=== PATIENT | female | born 1930 | race Caucasian/White ===

== ENCOUNTER 2019-08-30 16:29 | Inpatient (IN) | payer OTHER ==
[~2019-08-30] VITALS: Ht 144.8 cm; Wt 59.0 kg
[2019-08-30 16:36] VITALS: BP 145/65
--- NOTE | 2019-08-30 17:00 | NUR ---
89/F BIBA WITH SON AT BEDSIDE, C/O INTERMITTENT DIZZINESS WHEN CHANGING POSITIONS, X1 WEEK. PT ALSO REPORTS RECENT COUGH, CONGESTION, EAR PAIN, SORE THROAT, X1 WEEK. PT AWAKE AND ALERT, PERRLA 2MM, SKIN NORMAL COLOR LOOSE WARM AND DRY, RR EVEN AND UNLABORED. LUNG SOUNDS CLEAR BL. BS ACTIVE X4, ABD SOFT FLAT NONTENDER. HX HTN, POLYMYALGIA RHEUMATOID, BACK SURGERY WITH STIMULATOR, CARPAL TUNNEL SURGERIES RX HCTZ, AND OTHER RX MEDS PT IS UNSURE OF
--- NOTE | 2019-08-30 18:00 | NUR ---
pt unable to urinate at this time, pt given water, will attempt again
--- NOTE | 2019-08-30 19:08 | NUR ---
PT LAYING IN BED, SON AT BEDSIDE. RR EVEN AND UNLABORED. ALL NEEDS MET.
[2019-08-30 19:09] LABS: BASOPHILS % (AUTO) 0.5 % (0.0-2.0); EOSINOPHILS # (AUTO) 0.2 K/uL (0-0.4); EOSINOPHILS % (AUTO) 2.4 % (0.0-4.0); HEMATOCRIT 44.8 % (36-48); HEMOGLOBIN 14.8 g/dL (12.0-16.0); LYMPHOCYTES % (AUTO) 44.3 % (20.5-51.1); MEAN CORPUSCULAR HEMOGLOBIN 30 pg (27-31); MEAN CORPUSCULAR HGB CONC 33 g/dL (33-37); MEAN CORPUSCULAR VOLUME 90.6 fL (80-94); MONOCYTES # (AUTO) 0.8 K/uL (0.8-1.0); MONOCYTES % (AUTO) 8.7 % (1.7-9.3); NEUTROPHILS % (AUTO) 44.1 % (42.2-75.2); PLATELET COUNT (AUTO) 454 K/uL (140-450); RED BLOOD CELL COUNT(AUTO) 4.94 MIL/uL (4.20-5.40); RED CELL DISTRIBUTION WIDTH 12.6 % (11.6-13.7); WHITE BLOOD COUNT (AUTO) 9.1 K/uL (4.8-10.8)
--- NOTE | 2019-08-30 19:15 | NUR ---
pt able to urinate, urine sent for ua
--- NOTE | 2019-08-30 19:24 | NUR ---
PATIENT RESTING IN BED, SIDE RAIL X1
[2019-08-30 19:31] LABS: ASPARTATE AMINOTRANSFERASE 29 U/L (15-37); CARBON DIOXIDE 28.7 mmol/L (21-32); GLUCOSE 113 mg/dL (74-106); TOTAL BILIRUBIN 0.5 mg/dL (0.0-1.0); UREA NITROGEN, BLOOD 20 mg/dL (7-18)
[2019-08-30 19:38] LABS: ALBUMIN 3.4 g/dL (3.4-5.0); ANION GAP 12.9 (8-16); CHLORIDE 106 mmol/L (98-107); POTASSIUM 3.6 mmol/L (3.5-5.1); SODIUM SERUM 144 mmol/L (136-145)
--- NOTE | 2019-08-30 19:38 | NUR ---
PATIENT RESTING IN BED, SIDE RAIL X1
[2019-08-30 19:53] LABS: BILIRUBIN,URINE 1+ (NEGATIVE); BLOOD, URINE NEGATIVE (NEGATIVE); COLOR,URINE YELLOW (YELLOW); LEUKOCYTE ESTERASE ,URINE 2+ (NEGATIVE); NITRITE, URINE NEGATIVE (NEGATIVE); PH,URINE 5.5 (5.0-9.0); UGLUCOSE NEGATIVE (NEGATIVE)
[2019-08-30 20:02] LABS: APPEARANCE,URINE HAZY (CLEAR)
[2019-08-30 20:08] LABS: RBC,URINE NONE SEEN /HPF (0-5)
[2019-08-30] MEDS ORDERED: MECLIZINE 25 MG TAB PO ONE (20:20)
[2019-08-30] MEDS ORDERED: NACL 0.9% 1,000 ML IV ONE (20:20)
[2019-08-30] MEDS ORDERED: cefTRIAXone 1,000 MG VIAL ONE (20:47)
[2019-08-30] MEDS ORDERED: ACETAMINOPHEN 325 MG TAB PO PRN (21:05)
[2019-08-30] MEDS ORDERED: HYDROcodone/APAP 7.5/325 MG 1 TAB PO PRN (21:05)
[2019-08-30] MEDS ORDERED: ONDANSETRON 4 MG/2 ML VIAL IVP PRN (21:05)
--- NOTE | 2019-08-30 21:05 | NUR ---
PT LAYING IN BED, RR EVEN AND UNLABORED. VSS. REPORTS DIZZINESS WITH POSITION CHANGE/SITTING UP. DENIES ANY PAIN. ALL NEEDS MET.
[2019-08-30] MEDS ORDERED: ORE25 PO (21:35)
[2019-08-30] MEDS ORDERED: DULO30EC PO (21:35)
[2019-08-30] MEDS ORDERED: PANT40EC PO (21:36)
--- NOTE | 2019-08-30 22:00 | NUR ---
Patient will be admitted to care of DR MUSA. Admited to [facility]. Will go to room 128A. Belongings list completed. Report to TERRY ADLER.
--- NOTE | 2019-08-30 22:05 | NUR ---
ADMITTED THIS 89 YEAR OLD FEMALE FROM ER PER WHEELCHAIR COMPLAINING OF DIZZINESS AND COUGH, ASSISTED TO BED, VITAL SIGNS STABLE, DENIES ANY PAIN, STILL WITH DIZZINESS WITH MOVEMENT, ORIENTED TO ROOM AND CALL LIGHT, HIXTORY OBTAINED FROM PT ANS SON REHANA, SAFETY MEASURES IN PLACE, CALL LIGHT WITHIN REACH.
[2019-08-30 22:20] VITALS: BP 152/55
[2019-08-30] MEDS: NACL 0.9% 1,000 ML IV SCH (22:39)
--- NOTE | 2019-08-30 23:40 | NUR ---
PT VOIDED FREELY PER BEDPAN, VITAL SIGNS STABLE, DENIES ANY PAIN, NO SOB NOTED, OCCASIONAL MOIST COUGH NOTED, IVF INFUSING WELL, CONTINUE TO MONITOR CLOSELY.
[2019-08-31] VITALS: BP 151/50
[2019-08-31 00:33] LABS: MAGNESIUM 1.6 mg/dL (1.8-2.4); PHOSPHORUS 3.3 mg/dL (2.5-4.9); THYROID STIMULATING HORMONE 4.53 uIU/mL (0.34-3.74)
[2019-08-31 01:30] LABS: PROTHROMBIN TIME 9.9 secs (10.8-13.4)
[2019-08-31] MEDS ORDERED: MECLIZINE 25 MG TAB PO PRN (04:50)
[2019-08-31 05:20] VITALS: BP_SYST 133; BP_SYST 147; BP_SYST 152; BP_DIAS 51; BP_DIAS 68; BP_DIAS 81
[2019-08-31] MEDS: metroNIDAZOLE 500 MG/NS PREMIX 100 ML IV SCH ×3 (05:24→21:08)
--- NOTE | 2019-08-31 05:25 | NUR ---
ORTHOSTATIC VITAL SIGNS TAKEN WHILE LYING SUPINE, SITTING AND STANDING, WITH SLIGHT DIZZINESS WHILE STANDING UP BUT TOLERATED WELL, INITIAL DOSE OF FLAGYL IVPB ADMINISTERED, MONITORED CLOSELY.
--- NOTE | 2019-08-31 07:30 | NUR ---
PT AWAKE, NO SIGNS OF DISTRESS, REPORT GIVEN TO VITOR LEE FOR CONTINUITY OF CARE.
--- NOTE | 2019-08-31 07:31 | NUR ---
RECEIVED BEDSIDE REPORT FROM PETROLEUM SAMPLER RN. PT IS RESTING IN BED, AAOX4. SKIN IS DRY AND INTACT, IV SITE IS CLEAN, INTACT, AND INFUSING IVF ORDERED. BREATHING IS EVEN AND UNLABORED, ON RA. NO COMPLAINTS OF PAIN, NO SIGNS OF DISTRESS AT THIS TIME. EDUCATED PT TO USE CALL LIGHT FOR ANY ASSISTANCE, PT VERBALIZED UNDERSTANDING. SAFETY MEASURES ASSESSED. BED IN LOW POSITION, CALL LIGHT WITHIN REACH. WILL CONTINUE TO MONITOR.
[2019-08-31 08:00] VITALS: BP 146/63
[2019-08-31] MEDS ORDERED: MAGNESIUM OXIDE 400 MG TAB PO SCH (08:00)
--- NOTE | 2019-08-31 08:36 | NUR ---
PATIENT HAS BEEN SCREENED AND CATEGORIZED MODERATE NUTRITION RISK. PATIENT WILL BE SEEN WITHIN 3-5 DAYS OF ADMISSION. 09/02/19 09/04/[address]
[2019-08-31 09:06] LABS: BASOPHILS # (AUTO) 0.1 K/uL (0.00-0.22); EOSINOPHILS # (AUTO) 0.3 K/uL (0-0.4); EOSINOPHILS % (AUTO) 3.9 % (0.0-4.0); HEMATOCRIT 40.6 % (36-48); HEMOGLOBIN 13.3 g/dL (12.0-16.0); LYMPHOCYTES # (AUTO) 4.6 K/uL (2.5-16.5); LYMPHOCYTES % (AUTO) 51.9 % (20.5-51.1); MEAN CORPUSCULAR HEMOGLOBIN 30 pg (27-31); MEAN CORPUSCULAR HGB CONC 33 g/dL (33-37); MEAN CORPUSCULAR VOLUME 90.2 fL (80-94); MONOCYTES # (AUTO) 0.7 K/uL (0.8-1.0); MONOCYTES % (AUTO) 8.1 % (1.7-9.3); NEUTROPHILS # (AUTO) 3.1 K/uL (1.8-7.7); NEUTROPHILS % (AUTO) 35.1 % (42.2-75.2); PLATELET COUNT (AUTO) 413 K/uL (140-450); RED CELL DISTRIBUTION WIDTH 12.6 % (11.6-13.7); WHITE BLOOD COUNT (AUTO) 8.8 K/uL (4.8-10.8)
[2019-08-31] MEDS: DOCUSATE SODIUM 100 MG GELCAP PO SCH ×2 (09:36→20:11)
--- NOTE | 2019-08-31 09:36 | NUR ---
ADMINISTERED MORNING MEDICATIONS ORDERED. MEDICATION EDUCATION WAS GIVEN. PT VERBALIZED UNDERSTANDING. WILL CONTINUE TO MONITOR.
[2019-08-31] MEDS: PANTOPRAZOLE 40 MG TABEC PO SCH (09:37)
[2019-08-31] MEDS: HYDROCHLOROTHIAZIDE 25 MG TAB PO SCH (09:38)
[2019-08-31] MEDS: DULoxetine 30 MG CAPDR PO SCH (09:39)
[2019-08-31 11:07] LABS: ANION GAP 12.6 (8-16); CARBON DIOXIDE 26.2 mmol/L (21-32); CHLORIDE 110 mmol/L (98-107); GLUCOSE 90 mg/dL (74-106); POTASSIUM 3.8 mmol/L (3.5-5.1); SODIUM SERUM 145 mmol/L (136-145); UREA NITROGEN, BLOOD 14 mg/dL (7-18)
--- NOTE | 2019-08-31 11:10 | NUR ---
PT RESTING IN BED. NO COMPLAINTS OF PAIN. NO SIGNS OF DISTRESS NOTED. SAFETY MEASURES ASSESSED. BED IN LOW POSITION AND CALL LIGHT WITHIN REACH. REMINDED PT TO USE CALL LIGHT FOR ANY ASSISTANCE AND PT VERBALIZED UNDERSTANDING. WILL CONTINUE TO MONITOR.
[2019-08-31 12:06] LABS: CHOL/HDL RATIO 3.8 (1-4.5)
--- NOTE | 2019-08-31 13:46 | NUR ---
ADMINISTERED MEDICATION ORDERED. MEDICATION EDUCATION GIVEN TO PT. PT VERBALIZED UNDERSTANDING. REMINDED PT TO USE CALL LIGHT FOR ASSISTANCE. BED IN LOW POSITION. WILL CONTINUE TO MONITOR.
--- NOTE | 2019-08-31 15:05 | NUR ---
PT RESTING IN BED. NO COMPLAINTS OF PAIN AT THIS TIME. SAFETY MEASURES ASSESSED, CALL LIGHT WITHIN REACH AND BED IN LOW POSITION. WILL CONTINUE TO MONITOR.
[2019-08-31 16:00] VITALS: BP 126/43
[2019-08-31] MEDS ORDERED: ASPIRIN 325 MG TABEC PO SCH (17:02)
--- NOTE | 2019-08-31 17:10 | NUR ---
PT RESTING IN BED. COMPLAINS OF HEADACHE PAIN LEVEL 6/10. MEDICATED WITH ASPIRIN EC. MEDICATION EDUCATION GIVEN TO PT. PT VERBALIZED UNDERSTANDING. REMINDED PT TO USE CALL LIGHT FOR ANY ASSISTANCE. CALL LIGHT IS WITHIN REACH AND BED IN LOW POSITION. WILL CONTINUE TO MONITOR.
[2019-08-31] MEDS: NACL 0.9% 1,000 ML IV SCH (18:01)
--- NOTE | 2019-08-31 19:15 | NUR ---
ENDORSED PT TO CODING TECHNICIAN RN. PT IN STABLE CONDITION.
--- NOTE | 2019-08-31 19:18 | NUR ---
RECEIVED PATIENT IN STABLE CONDITION FROM AM SHIFT NURSE. MEDSUR PATIENT AWAKE WITH NO S/SX ACUTE DISTRESS NOTED. NO C/O PAIN AT THIS TIME. IV SITE 20G PATENT/INTACT, INFUSING IV FLUIDS WELL. SAFETY PRECAUTIONS IN PLACE. BED IN LOWEST POSITION. CALL LIGHT WITHIN REACH. WILL CONTINUE TO MONITOR.
[2019-08-31 21:09] LABS: MAGNESIUM 1.5 mg/dL (1.8-2.4)
--- NOTE | 2019-08-31 21:19 | NUR ---
NO S/SX ACUTE DISTRESS. NO C/O PAIN. IV FLUIDS INFUSING WELL. CALL LIGHT WITHIN REACH. WILL CONTINUE TO MONITOR.
--- NOTE | 2019-08-31 23:57 | NUR ---
PATIENT RESTING IN BED, COMFORTABLY. DUE MEDS GIVEN. NO C/O PAIN. NO S/SX ACUTE DISTRESS. PATIENT CLEAN/DRY. CALL LIGHT WITHIN REACH. WILL CONTINUE TO MONITOR.
[2019-09-01] VITALS: BP 126/48
--- NOTE | 2019-09-01 02:00 | NUR ---
MADE ROUNDS. NO S/SX ACUTE DISTRESS. NO C/O PAIN. PATIENT CONTINUES IN STABLE CONDITION. CALL LIGHT WITHIN REACH. WILL CONTINUE TO MONITOR.
--- NOTE | 2019-09-01 04:08 | NUR ---
MADE ROUNDS. PATIENT CONTINUES IN STABLE CONDITION. NO C/O PAIN. NO S/SX ACUTE DISTRESS. CALL LIGHT WITHIN REACH. WILL CONTINUE TO MONITOR.
[2019-09-01] MEDS: metroNIDAZOLE 500 MG/NS PREMIX 100 ML IV SCH ×3 (04:52→20:20)
--- NOTE | 2019-09-01 06:46 | NUR ---
PATIENT IS IN STABLE CONDITION. DUE MEDS GIVEN ORDERED. NO C/O PAIN. NO S/SX ACUTE DISTRESS. CALL LIGHT WITHIN REACH. WILL CONTINUE TO MONITOR.
--- NOTE | 2019-09-01 07:20 | NUR ---
RECEIVED REPORT FROM NIGHT NURSE, PT IS STABLE LAYING IN BED, AAOX4, INTRODUCE SELF, UPDATE WHITEBOARD, IV SITE IS RIGHT HAND 20 G, RUNNING NS AT 50 ML/H, PT IS STABLE NO SIGNS OF DISTRESS NOTED, CALL LIGHT WITHIN REACH.
--- NOTE | 2019-09-01 07:32 | NUR ---
ENDORSED PATIENT TO AM SHIFT NURSE, NORBERTO, IN STABLE CONDITION.
[2019-09-01 07:33] LABS: BASOPHILS % (AUTO) 0.5 % (0.0-2.0); EOSINOPHILS # (AUTO) 0.4 K/uL (0-0.4); EOSINOPHILS % (AUTO) 5.6 % (0.0-4.0); HEMOGLOBIN 12.4 g/dL (12.0-16.0); LYMPHOCYTES # (AUTO) 3.6 K/uL (2.5-16.5); LYMPHOCYTES % (AUTO) 48.1 % (20.5-51.1); MEAN CORPUSCULAR HEMOGLOBIN 30 pg (27-31); MEAN CORPUSCULAR HGB CONC 33 g/dL (33-37); MEAN CORPUSCULAR VOLUME 89.7 fL (80-94); MONOCYTES # (AUTO) 0.6 K/uL (0.8-1.0); MONOCYTES % (AUTO) 8.2 % (1.7-9.3); NEUTROPHILS # (AUTO) 2.8 K/uL (1.8-7.7); NEUTROPHILS % (AUTO) 37.6 % (42.2-75.2); PLATELET COUNT (AUTO) 363 K/uL (140-450); RED BLOOD CELL COUNT(AUTO) 4.13 MIL/uL (4.20-5.40); RED CELL DISTRIBUTION WIDTH 12.6 % (11.6-13.7); WHITE BLOOD COUNT (AUTO) 7.5 K/uL (4.8-10.8)
[2019-09-01 08:00] VITALS: BP 144/50
--- NOTE | 2019-09-01 08:05 | NUR ---
DISCONNECTED PT FROM IV SO SHE COULD AMBULATE TO THE BATHROOM. PT COMPLAINED OF DIZZINESS AND SAT BACK ON THE BED, BROUGHT A BEDSIDE COMMODE TO PT SHE IS UNABLE TO AMBULATE DUE TO DIZZINESS. PT VOIDED, HELPED PT BACK IN BED, PT RESTING IN BED, CALL LIGHT WITHIN REACH.
[2019-09-01] MEDS: DOCUSATE SODIUM 100 MG GELCAP PO SCH ×2 (08:43→20:20)
[2019-09-01] MEDS: DULoxetine 30 MG CAPDR PO SCH (08:46)
[2019-09-01] MEDS: HYDROCHLOROTHIAZIDE 25 MG TAB PO SCH (08:47)
[2019-09-01] MEDS: PANTOPRAZOLE 40 MG TABEC PO SCH (08:47)
[2019-09-01 08:56] LABS: MAGNESIUM 1.4 mg/dL (1.8-2.4)
[2019-09-01 09:08] LABS: ANION GAP 12.9 (8-16); CARBON DIOXIDE 26.5 mmol/L (21-32); CHLORIDE 107 mmol/L (98-107); GLUCOSE 90 mg/dL (74-106); POTASSIUM 3.4 mmol/L (3.5-5.1); SODIUM SERUM 143 mmol/L (136-145); UREA NITROGEN, BLOOD 11 mg/dL (7-18)
--- NOTE | 2019-09-01 11:00 | NUR ---
PT RESTING IN BED, NO SIGNS OF DISTRESS NOTED, CALL LIGHT WITHIN REACH.
[2019-09-01] MEDS: NACL 0.9% 1,000 ML IV SCH (13:36)
--- NOTE | 2019-09-01 14:20 | NUR ---
TOOK PT ORTHOSTATIC BLOOD PRESSURE. SUPINE 145/54, HR 93, STANDING 123/[address] MCINTOSH. PT IS BACK IN BED RESTING, CALL LIGHT WITHIN REACH.
[2019-09-01 16:00] VITALS: BP 128/53
--- NOTE | 2019-09-01 16:55 | NUR ---
HELPED PT TO BEDSIDE COMMODE. PT FELT DIZZY WHILE ON THE COMMODE. HELPED PT TO BED, PT STABLE IN BED, CALL LIGHT WITHIN REACH.
--- NOTE | 2019-09-01 17:30 | NUR ---
INFORMED DR LAURENT THAT PT MAGNESIUM LEVEL OF 1.4. SAID SHE WOULD PUT IN ORDERS
--- NOTE | 2019-09-01 19:30 | NUR ---
GAVE REPORT TO NIGHT NURSE FOR CONTINUITY OF CARE, PT IS STABLE.
--- NOTE | 2019-09-01 19:35 | NUR ---
RECEIVED FROM AM RN IN BED AWAKE AND ALERT. GOOD AFFECT. SMILING. ORIENTED TO CALL LIGHT USE FOR ANY HELP SHE MAY NEED. IVF SITE INTACT AND NO INFILTRATION. BED ALARM ON . DX. OF CHANGE OF LOC RT UTI. CARE PLANS FOR THE NIGHT DISCUSSED WITH HER.
[2019-09-01 20:00] VITALS: BP 130/59
--- NOTE | 2019-09-01 20:27 | NUR ---
PT. ON THE PHONE TALKING TO A FRIEND. MEDICATIONS ADMINISTERED AND EXPLAINED REASONS FOR THE NEED OF IT AND ADVERSE REACTIONS. A/O X 4. GOOD AFFECT. SMILING.
--- NOTE | 2019-09-01 22:00 | NUR ---
PT. STILL AWAKE AT THIS TIME. REMINDED TO USE CALL LIGHT FOR ANY HELP SHE MAY NEED. "OK" A/O X 4. ABLE TO VERBALIZE NEEDS WELL IN KOREAN. NO PAIN COMPLAINTS AT THIS TIME.
[2019-09-02] VITALS: BP 139/54
--- NOTE | 2019-09-02 | NUR ---
WOKE UP AND ASKED TO GO BSC TO URINATE. ASSISTED. ABLE TO URINATE . NO PAIN COMPLAINTS DONE. CALL LIGHT WITH IN REACH.
--- NOTE | 2019-09-02 02:58 | NUR ---
SLEEPING WELL. NO COMPLAINTS OF ANY PAIN THIS SHIFT. BED ALARM ON.
[2019-09-02] MEDS: metroNIDAZOLE 500 MG/NS PREMIX 100 ML IV SCH ×2 (04:33→13:48)
--- NOTE | 2019-09-02 04:45 | NUR ---
SLEEPING WELL. NO RESTLESSNESS. CALL LIGHT WITH IN REACH AND BED ALARM ON.
--- NOTE | 2019-09-02 05:54 | NUR ---
PT. AM PERSONAL HYGIENE RENDERED BY METAL PATTERNMAKER APPRENTICE. GOOD AFFECT. SMILING. A/O X 4. CLEAR SPEECH. DENIES PAIN THIS SHIFT AND ABLE TO VERBALIZE AND CARRY A CONVERSATION WITH CARE GIVERS.
[2019-09-02 06:19] LABS: BASOPHILS % (AUTO) 0.5 % (0.0-2.0); EOSINOPHILS # (AUTO) 0.3 K/uL (0-0.4); EOSINOPHILS % (AUTO) 4.4 % (0.0-4.0); HEMATOCRIT 33.8 % (36-48); HEMOGLOBIN 11.5 g/dL (12.0-16.0); LYMPHOCYTES # (AUTO) 3.7 K/uL (2.5-16.5); LYMPHOCYTES % (AUTO) 47.2 % (20.5-51.1); MEAN CORPUSCULAR HEMOGLOBIN 31 pg (27-31); MEAN CORPUSCULAR HGB CONC 34 g/dL (33-37); MEAN CORPUSCULAR VOLUME 89.8 fL (80-94); MONOCYTES # (AUTO) 0.7 K/uL (0.8-1.0); MONOCYTES % (AUTO) 9.2 % (1.7-9.3); NEUTROPHILS % (AUTO) 38.7 % (42.2-75.2); PLATELET COUNT (AUTO) 374 K/uL (140-450); RED BLOOD CELL COUNT(AUTO) 3.76 MIL/uL (4.20-5.40); RED CELL DISTRIBUTION WIDTH 12.6 % (11.6-13.7); WHITE BLOOD COUNT (AUTO) 7.7 K/uL (4.8-10.8)
[2019-09-02 07:01] LABS: ANION GAP 9.3 (8-16); CARBON DIOXIDE 28.2 mmol/L (21-32); CHLORIDE 109 mmol/L (98-107); CREATININE 0.9 mg/dL (0.6-1.3); GLUCOSE 94 mg/dL (74-106); POTASSIUM 3.5 mmol/L (3.5-5.1); SODIUM SERUM 143 mmol/L (136-145); UREA NITROGEN, BLOOD 6 mg/dL (7-18)
[2019-09-02 07:14] LABS: MAGNESIUM 1.3 mg/dL (1.8-2.4); PHOSPHORUS 3.5 mg/dL (2.5-4.9)
--- NOTE | 2019-09-02 07:25 | NUR ---
RECEIVED REPORT FROM FLASH DRIER OPERATOR NURSE FOR CONTINUITY OF CARE. PATIENT IN STABLE CONDITION, PREPARING FOR DISCHARGE TODAY. SKIN INTACT. CALL LIGHT ON AND WITHIN REACH. WILL CONTINUE TO MONITOR.
[2019-09-02 08:00] VITALS: BP 136/65
[2019-09-02] MEDS: DOCUSATE SODIUM 100 MG GELCAP PO SCH (09:00)
[2019-09-02] MEDS: NACL 0.9% 1,000 ML IV SCH (09:01)
[2019-09-02] MEDS: DULoxetine 30 MG CAPDR PO SCH (09:52)
[2019-09-02] MEDS: HYDROCHLOROTHIAZIDE 25 MG TAB PO SCH (09:53)
[2019-09-02] MEDS: PANTOPRAZOLE 40 MG TABEC PO SCH (09:53)
--- NOTE | 2019-09-02 10:00 | NUR ---
PATIENT TOLERATED MEDICATIONS WELL, BREAKFAST TOLERATED WELL. PATIENT REPORTS BEING READY FOR DISCHARGE, BUT COMPLAINS OF DIZZINESS UPON STANDING. BEDSIDE COMMODE IN USE DUE TO DIZZINESS UPON STANDING. SKIN IN TACT. CALL LIGHT ON AND WITHIN REACH WILL CONTINUE TO MONITOR.
--- NOTE | 2019-09-02 10:10 | NUR ---
DISCHARGE PLANNING: RECEIVED AN ORDER FOR FOR SNF EVAL FOR PT AND IV ANTIBIOTICS. MET WITH THE PATIENT AT THE BEDSIDE REGARDING DC PLAN. SHE STATED EVERYTHING HAD BEEN ARRANGED WITH [facility]. I INFORMED HER THAT I AM ONE WORKING ON HER DISCHARGE AND I HAVE NOT HEARD ANYTHING ABOUT [facility]. SHE STATED SHE SPOKE WITH THE DOCTOR THIS MORNING AND THEY SAID SHE IS GOING THERE. SHE ALSO MENTIONED THAT HAD BEEN THERE AND SHE WAS DOING 3 HOURS OF PT/OT THERE FOR A RIGHT SHOULDER FRACTURE. I INFORMED HER THAT I WILL HAVE TO DISCUSS THIS WITH HER ATTENDING PHYSICIAN. PROVIDED HER WITH THE IMM, CHOICE OF VENDOR FORM AND LIST OF NURSING FACILITIES. SHE STATED SHE WILL TAKE A LOOK AT IT AND SHE HAS TO TALK HER SON CORY. Addendum: 09/02/19 at 1503 by Alma Medina CM RECEIVED A CALL FROM PATIENT'S DAUGHTER IN [facility], SHE WAS SAYING THAT THEY SPECIFICALLY TOLD THE DOCTOR THAT THEY WANTED THE PATIENT TO GO TO [facility] AND THE DOCTOR STATED THAT THEY WILL TRY. I EXPLAINED IT TO HER THAT [facility] REQUIRES PATIENT TO PARTICIPATE IN 3 HOURS OF PT/OT SERVICES. SHE STATED THAT SHE KNOWS THAT BECAUSE THE PATIENT WAS THERE IN 2019. I TOLD HER THAT I WILL INFORM THE DOCTOR REGARDING HER REQUEST. SHE PROVIDED ME WITH HER PHONE NUMBER [phone]. DR. OCHOA MADE AWARE, HE STATED HE WILL CONTACT THE FAMILY. CONTACTED [facility] AT [phone], ABLE TO SPEAK TO [facility]. SHE STATED TO GO AHEAD AND SEND REFERRAL TO [phone]. REFERRAL SENT. Addendum: 09/02/19 at 1524 by Alma Medina CM PER JIGAR ADMISSIONS AT [facility], SHE CONFIRMED THAT THEY RECEIVED THE REFERRAL AND IS REVIEWING IT. SHE STATED THEY WILL CALL ME BACK WITH A DECISION. CONTACTED [facility] AT [phone], NO ANSWER. LEFT MESSAGE. Addendum: 09/02/19 at 1632 by Alma Medina CM RECEIVED A CALL FROM FAMILIA CAREY FROM [facility], SHE STATED THEY ARE ABLE TO ACCEPT THE PATIENT AND WILL GO TO ROOM 1209A UNDER DR. WOLFE. NUMBER FOR REPORT [phone] OCHOA MADE AWARE. PATIENT'S DAUGHTER IN [place] [facility], MADE AWARE OF [facility]S ACCEPTANCE. PATIENT MADE AWARE WELL AND IS VERY APPRECIATIVE. Addendum: 09/02/19 at 1715 by Mercy Lofton SS I was informed by Crop And Soil Scientist Alma, patient does not meet criteria for transportation under Medicare and [employer] can be contacted. Per patient's son Cory, he is not able to pay for transportation or assist with transportation. Patient also stated she is not able to provide transportation. I called and spoke with Jerry from [employer], arranged transportation to [facility], picking table worker time is at 7:30pm [email or web address], patient's nurse Alex made aware of picking table worker time ( $100 for transportation ), billed to [facility], Moth Proofer Mercy from [employer]ational [employer] made aware. Per Tari from [facility], they do not pay for transportation.
--- NOTE | 2019-09-02 12:40 | NUR ---
PATIENT IS RESTING IN BED, PATIENT REPORTS DIZZINESS. BED IN LOW POSITION, CALL LIGHT ON AND WITHIN REACH. WILL CONTINUE TO MONITOR .
[2019-09-02] MEDS ORDERED: MAG SULF 2000 MG/WATER PREMIX 100 ML IV SCH (14:00)
--- NOTE | 2019-09-02 15:30 | NUR ---
PATIENT IS RESTING IN BED, MAGNESIUM IS 1.2 MAG RIDER ORDERED. PATIENT PRESENTS DIZZY UPON STANDING. BED IN LOW POSITION CALL LIGHT ON AND WITHIN REACH. WILL CONTINUE TO MONITOR.
[2019-09-02 16:00] VITALS: BP 127/75
[2019-09-02] MEDS ORDERED: ROC2I IV (16:23)
[2019-09-02] MEDS ORDERED: METR250T2 PO (16:23)
--- NOTE | 2019-09-02 18:00 | NUR ---
PATIENT TO BE PICKED UP BY [facility] FOR TRANSFER TO [facility] FOR REHAB. MAG RIDER TOLERATED WELL. WILL CONTINUE TO MONITOR.
--- NOTE | 2019-09-02 19:35 | NUR ---
DISCHARGED FROM [facility], EN ROUTE TO [facility], BELONGINGS AND PAPERWORK SIGNED. IV INTACT FOR USE AT [facility].
== END 2019-09-02 19:53 | disposition home health service (06) | DRG 689 ==
LOC: MED 16:29 → MMU 21:11
PROVIDERS: ADMIT General Practice; ATTEND General Practice
DX: N39.0 Urinary tract infection, site not specified (principal); G93.41 Metabolic encephalopathy; G90.8 Other disorders of autonomic nervous system; E11.9 Type 2 diabetes mellitus without complications; I10 Essential (primary) hypertension; M35.3 Polymyalgia rheumatica; E03.9 Hypothyroidism, unspecified; K21.9 Gastro-esophageal reflux disease without esophagitis; F32.9 Major depressive disorder, single episode, unspecified; G89.29 Other chronic pain; Z90.710 Acquired absence of both cervix and uterus; Z88.5 Allergy status to narcotic agent; Z82.49 Family history of ischemic heart disease and other diseases of the circulatory system; Z88.8 Allergy status to other drugs, medicaments and biological substances; Z80.0 Family history of malignant neoplasm of digestive organs; Z90.49 Acquired absence of other specified parts of digestive tract; Z87.891 Personal history of nicotine dependence
CPT/HCPCS: 36415; 71045; 80048; 80053; 81001; 83036; 83605; 83690; 83735; 83880; 84100; 84443; 84484; 85025; 85610; 85730; 87040; 87081; 87086; 87804; 93005; 93880; 96365; 97110; 97112; 97116; 97161-GP; 97530; 99285; J0696; J1644; J3475; J3490; J7030; J7060; J8597; Q0092